=== PATIENT | female | born 1955 | race Two or more races ===

== ENCOUNTER 2024-01-21 22:45 | Emergency (ER) | payer BC, MEDICAID ==
[~2024-01-21] VITALS: Ht 160 cm; Wt 74.8 kg
[2024-01-21 22:47] VITALS: TEMP 98.3
[2024-01-21] MEDS ORDERED: IBUPROFEN 600 MG TABLET ONE (23:28)
[2024-01-21] MEDS: IBUPROFEN 600 MG TABLET PO ONE (23:34)
[2024-01-21 23:48] LABS: BASOPHILS % (AUTO) 0.5 % (0.0-2.0); EOSINOPHILS % (AUTO) 0.8 % (0.0-6.0); HEMATOCRIT 37 % (33-45); HEMOGLOBIN 12.6 g/dL (11.5-14.8); LYMPHOCYTES # (AUTO) 1.5 K/uL (0.8-4.8); LYMPHOCYTES % (AUTO) 32.2 % (20.0-44.0); MEAN CORPUSCULAR HEMOGLOBIN 30 PG (26.0-33.0); MEAN CORPUSCULAR HGB CONC 34 g/dl (31.0-36.0); MEAN CORPUSCULAR VOLUME 87 fL (82-100); MONOCYTES # (AUTO) 0.4 K/uL (0.1-1.30); MONOCYTES % (AUTO) 7.7 % (2.0-12.0); NEUTROPHILS # (AUTO) 2.7 K/uL (1.8-8.9); NEUTROPHILS % (AUTO) 58.8 % (43.0-81.0); PLATELET COUNT (AUTO) 164 K/uL (150-450); RED BLOOD CELL COUNT(AUTO) 4.25 MIL/uL (4.0-5.2); RED CELL DISTRIBUTION WIDTH 16.6 % (11.5-15.0); WHITE BLOOD COUNT (AUTO) 4.6 K/uL (4.3-11.0)
[2024-01-21 23:55] LABS: CALCIUM, SERUM 7.4 mg/dL (8.5-10.1); CARBON DIOXIDE 30 mmol/L (21-32); CHLORIDE 97 mmol/L (98-107); CREATININE 0.8 mg/dL (0.6-1.3); GLUCOSE 387 mg/dL (74-106); POTASSIUM 3.5 mmol/L (3.5-5.1); SODIUM SERUM 133 mmol/L (136-145); UREA NITROGEN, BLOOD 19 mg/dL (7-18)
[2024-01-22 00:01] LABS: INR 0.91 (0.91-1.10); PARTIAL THROMBOPLASTIN TIME 28.7 SEC (24.3-34.3); PROTHROMBIN TIME 9.7 SECS (9.2-11.1)
[2024-01-22 00:04] LABS: ALANINE AMINOTRANSFERASE 14 U/L (12-78); ALBUMIN 3.1 g/dL (3.4-5.0); ALKALINE PHOSPHATASE 274 U/L (46-116); ASPARTATE AMINOTRANSFERASE 21 U/L (15-37); BILIRUBIN,DIRECT 0.1 mg/dL (0.0-0.2); BILIRUBIN,TOTAL 0.3 mg/dL (0.2-1.0); TOTAL PROTEIN, SERUM 7.2 g/dL (6.4-8.2)
[2024-01-22] MEDS: IV NS 0.9% 1,000 ML BAG IV ONE (00:45)
[2024-01-22] MEDS ORDERED: IBUPROFEN 600 MG TABLET ONE (01:47)
[2024-01-22] MEDS ORDERED: IBUPROFEN 600 MG TABLET PO ONE (02:00)
[2024-01-22 06:14] VITALS: BP 151/89; O2SAT 99
== END 2024-01-22 06:14 | disposition home or self-care (01) ==
LOC: ER 22:48
DX: R07.89 Other chest pain (principal); E11.65 Type 2 diabetes mellitus with hyperglycemia; I10 Essential (primary) hypertension; R94.31 Abnormal electrocardiogram [ECG] [EKG]; M54.89 Other dorsalgia; R51.9 Headache, unspecified; E78.5 Hyperlipidemia, unspecified; Z88.2 Allergy status to sulfonamides; Z88.8 Allergy status to other drugs, medicaments and biological substances
CPT/HCPCS: 99285; 71045; 93005 ×2; 85025; 80048; 80076; 36415; 84484; 85730; 96360; J7030

== ENCOUNTER → 2024-04-11 | Emergency (ER) | payer MEDICARE, OTHER ==
[~2024-04-11] VITALS: Ht 157.5 cm; Wt 68.0 kg
[~2024-04-11] MED LIST: ASPIRIN 325 MG TABLET ONE; NITROGLYCERIN 0.4 MG/TAB BOTTLE ONE
[2024-04-11 21:34] VITALS: BP 162/80; TEMP 98.6; O2SAT 100
[2024-04-11] MEDS: ASPIRIN 325 MG TABLET PO ONE (21:56)
[2024-04-11] MEDS: NITROGLYCERIN 0.4 MG/TAB BOTTLE SL ONE (21:56)
== END | disposition left against medical advice (07) ==
LOC: ER 21:23
DX: R07.89 Other chest pain (principal); R06.02 Shortness of breath; E11.9 Type 2 diabetes mellitus without complications; E78.5 Hyperlipidemia, unspecified; Z88.2 Allergy status to sulfonamides; Z88.8 Allergy status to other drugs, medicaments and biological substances

== ENCOUNTER 2024-09-05 18:46 | Inpatient (IN) | payer MEDICARE, OTHER ==
[~2024-09-05] VITALS: Ht 149.9 cm; Wt 65.4 kg
[2024-09-05] MEDS ORDERED: MAG HYDROX/AL HYDROX/SIMETH 30 ML UDC ONE (19:30)
[2024-09-05] MEDS: FAMOTIDINE/PF INJ 20 MG/2 ML VIAL IV ONE (19:30)
[2024-09-05] MEDS: MAG HYDROX/AL HYDROX/SIMETH 30 ML UDC PO ONE (19:30)
[2024-09-05] MEDS ORDERED: FAMOTIDINE/PF INJ 20 MG/2 ML VIAL IV ONE (19:30)
[2024-09-05 19:37] LABS: BASOPHILS % (AUTO) 0.4 % (0.0-2.0); EOSINOPHILS % (AUTO) 0.7 % (0.0-6.0); HEMATOCRIT 40 % (33-45); HEMOGLOBIN 13.5 g/dL (11.5-14.8); LYMPHOCYTES # (AUTO) 1.4 K/uL (0.8-4.8); LYMPHOCYTES % (AUTO) 28.8 % (20.0-44.0); MEAN CORPUSCULAR HEMOGLOBIN 31 PG (26.0-33.0); MEAN CORPUSCULAR HGB CONC 34 g/dl (31.0-36.0); MEAN CORPUSCULAR VOLUME 91 fL (82-100); MONOCYTES # (AUTO) 0.5 K/uL (0.1-1.30); MONOCYTES % (AUTO) 9.6 % (2.0-12.0); NEUTROPHILS % (AUTO) 60.5 % (43.0-81.0); PLATELET COUNT (AUTO) 177 K/uL (150-450); RED BLOOD CELL COUNT(AUTO) 4.38 MIL/uL (4.0-5.2); RED CELL DISTRIBUTION WIDTH 14.5 % (11.5-15.0); WHITE BLOOD COUNT (AUTO) 4.9 K/uL (4.3-11.0)
[2024-09-05 20:00] LABS: ALBUMIN 3.2 g/dL (3.4-5.0); BILIRUBIN,TOTAL 0.3 mg/dL (0.2-1.0); CALCIUM, SERUM 8.8 mg/dL (8.5-10.1); POTASSIUM 3.6 mmol/L (3.5-5.1); TOTAL PROTEIN, SERUM 6.8 g/dL (6.4-8.2)
[2024-09-05] MEDS ORDERED: ASPIRIN EC 325 MG TABLET.DR PO ONE (20:21)
[2024-09-05] MEDS: ASPIRIN EC 325 MG TABLET.DR PO ONE (20:21)
[2024-09-05] MEDS ORDERED: Z GUARD REMEDY 4 OZ OINT TP PRN (20:30)
[2024-09-05] MEDS ORDERED: MAGNESIUM HYDROXIDE 30 ML UDC PO PRN (20:30)
[2024-09-05] MEDS: ENOXAPARIN SODIUM 40 MG/0.4 ML DISP.SYRIN SQ SCH (20:30)
[2024-09-05] MEDS ORDERED: NITROGLYCERIN 0.4 MG/TAB BOTTLE SL PRN (20:30)
[2024-09-05] MEDS ORDERED: DEXTROSE 50%-WATER 50 ML DISP.SYRIN IV PRN (20:30)
[2024-09-05] MEDS ORDERED: ENOXAPARIN SODIUM 40 MG/0.4 ML DISP.SYRIN SQ ONE (21:13)
[2024-09-05] MEDS: INSULIN REGULAR, HUMAN 100 UNIT/ML 3 ML VIAL SQ PRN (22:00)
[2024-09-05] MEDS: BLOOD SUGAR DIAGNOSTIC 1 EACH STRIP IN SCH (22:00)
[2024-09-05] MEDS ORDERED: INSULIN REGULAR, HUMAN 100 UNIT/ML 10 ML VIAL ONE (22:56)
[2024-09-06 05:51] LABS: BASOPHILS % (AUTO) 0.4 % (0.0-2.0); EOSINOPHILS % (AUTO) 0.7 % (0.0-6.0); HEMATOCRIT 39 % (33-45); HEMOGLOBIN 13.1 g/dL (11.5-14.8); LYMPHOCYTES # (AUTO) 1.4 K/uL (0.8-4.8); MEAN CORPUSCULAR HEMOGLOBIN 30 PG (26.0-33.0); MEAN CORPUSCULAR HGB CONC 34 g/dl (31.0-36.0); MEAN CORPUSCULAR VOLUME 89 fL (82-100); MONOCYTES # (AUTO) 0.4 K/uL (0.1-1.30); NEUTROPHILS # (AUTO) 2.2 K/uL (1.8-8.9); NEUTROPHILS % (AUTO) 54.9 % (43.0-81.0); PLATELET COUNT (AUTO) 160 K/uL (150-450); RED BLOOD CELL COUNT(AUTO) 4.38 MIL/uL (4.0-5.2); RED CELL DISTRIBUTION WIDTH 14.8 % (11.5-15.0); WHITE BLOOD COUNT (AUTO) 4.1 K/uL (4.3-11.0)
[2024-09-06 06:12] LABS: CALCIUM, SERUM 8.4 mg/dL (8.5-10.1); CREATININE 0.9 mg/dL (0.6-1.3); MAGNESIUM 2.1 mg/dL (1.8-2.4); PHOSPHORUS 3.7 mg/dL (2.5-4.9); POTASSIUM 3.4 mmol/L (3.5-5.1)
[2024-09-06] MEDS ORDERED: PANTOPRAZOLE 40 MG TABLET.DR PO ONE (07:39)
[2024-09-06] MEDS: PANTOPRAZOLE 40 MG TABLET.DR PO SCH (07:46)
[2024-09-06] MEDS ORDERED: ONDA-97 PO (11:06)
[2024-09-06] MEDS ORDERED: MELA5TAB PO (11:06)
[2024-09-06] MEDS ORDERED: INSU100I14 SQ (11:07)
[2024-09-06] MEDS ORDERED: LACT10SO58 PO (11:07)
[2024-09-06] MEDS ORDERED: MICO45CR46 VG (11:07)
[2024-09-06] MEDS ORDERED: CYCL10TA9 PO (11:07)
[2024-09-06] MEDS ORDERED: ATOR80TA PO (11:07)
[2024-09-06] MEDS ORDERED: RANO500T6 PO (11:07)
[2024-09-06] MEDS ORDERED: ALBU2.5V38 IH (11:07)
[2024-09-06] MEDS ORDERED: HYDR28.316 RC (11:07)
[2024-09-06] MEDS ORDERED: TRAM50TA2 PO (11:07)
[2024-09-06] MEDS ORDERED: SIME80TA15 PO (11:07)
[2024-09-06] MEDS ORDERED: ATEN100T PO (11:07)
[2024-09-06] MEDS ORDERED: POLY17PO4 PO (11:07)
[2024-09-06] MEDS ORDERED: OXYB5TAB16 PO (11:07)
[2024-09-06] MEDS ORDERED: SERT50TA12 PO (11:07)
[2024-09-06] MEDS ORDERED: MIRT-90 PO (11:07)
[2024-09-06] MEDS ORDERED: INSU100I30 SQ (11:07)
[2024-09-06] MEDS ORDERED: DAPA10TA PO (11:07)
[2024-09-06] MEDS ORDERED: AMLO10TA4 PO (11:07)
[2024-09-06] MEDS ORDERED: ALBU8.5H8 IH (11:07)
[2024-09-06] MEDS ORDERED: MAG30ORA PO (11:07)
[2024-09-06] MEDS ORDERED: SENN8.6T19 PO (11:07)
[2024-09-06] MEDS ORDERED: DULO60CA45 PO (11:07)
[2024-09-06] MEDS ORDERED: ACET-2030 PO (11:07)
[2024-09-06] MEDS ORDERED: TERB250T53 PO (11:07)
[2024-09-06] MEDS ORDERED: LOSA100T31 PO (11:07)
[2024-09-06] MEDS ORDERED: ASPI-1420 PO (11:07)
[2024-09-06] MEDS ORDERED: ARIP5TAB10 PO (11:07)
[2024-09-06] MEDS ORDERED: POTASSIUM CHLORIDE 20 MEQ TAB.PRT.SR PO ONE (12:10)
[2024-09-06] MEDS: POTASSIUM CHLORIDE 20 MEQ TAB.PRT.SR PO SCH (12:12)
[2024-09-06] MEDS ORDERED: INSULIN REGULAR, HUMAN 100 UNIT/ML 10 ML VIAL ONE (12:56)
[2024-09-06] MEDS ORDERED: CYCLOBENZAPRINE 10 MG TABLET PO PRN (15:00)
[2024-09-06] MEDS ORDERED: INSULIN REGULAR, HUMAN 100 UNIT/ML 3 ML VIAL SQ PRN (15:00)
[2024-09-06] MEDS ORDERED: POLYETHYLENE GLYCOL 3350 17 GM POWD.PACK PO PRN (15:00)
[2024-09-06] MEDS ORDERED: TRAMADOL HCL 50 MG TABLET PO PRN (15:00)
[2024-09-06] MEDS ORDERED: SENNOSIDES 8.6 MG TABLET PO PRN (15:00)
[2024-09-06] MEDS ORDERED: DEXTROSE 50%-WATER 50 ML DISP.SYRIN IV PRN (15:00)
[2024-09-06] MEDS ORDERED: ACETAMINOPHEN 325 MG TABLET ONE (15:22)
[2024-09-06] MEDS: ACETAMINOPHEN 325 MG TABLET PO PRN (15:24)
[2024-09-06] MEDS ORDERED: ACETAMINOPHEN ES 500 MG TABLET PO SCH (17:00)
[2024-09-06] MEDS ORDERED: OXYBUTYNIN CHLORIDE 5 MG TABLET PO SCH (17:00)
[2024-09-06] MEDS ORDERED: MIRTAZAPINE 15 MG TABLET PO SCH (18:00)
[2024-09-06] MEDS: BLOOD SUGAR DIAGNOSTIC 1 EACH STRIP IN SCH (18:06)
[2024-09-06 19:30] VITALS: BP 139/74; TEMP 98.1; O2SAT 96
[2024-09-06] MEDS ORDERED: ALBUTEROL FS 2.5 MG/0.5 ML VIAL.NEB NEB PRN (19:30)
[2024-09-06 20:00] VITALS: BP 139/74; TEMP 98.1; O2SAT 96
[2024-09-06] MEDS: RANOLAZINE 500 MG TAB.ER.12H PO SCH (21:00)
[2024-09-06] MEDS: MIRTAZAPINE 15 MG TABLET PO SCH (21:01)
[2024-09-06] MEDS: ACETAMINOPHEN ES 500 MG TABLET PO SCH (21:01)
[2024-09-06] MEDS: OXYBUTYNIN CHLORIDE 5 MG TABLET PO SCH (21:01)
[2024-09-06] MEDS ORDERED: Medication Not On Formulary EA (Melatonin 10 MG) PO SCH (22:00)
[2024-09-06] MEDS: AMLODIPINE BESYLATE 10 MG TABLET PO SCH (22:13)
[2024-09-06] MEDS: LACTULOSE 10 G/15 ML UDC (PYXIS) PO SCH (22:13)
[2024-09-07] VITALS: BP 150/82; TEMP 97.7; O2SAT 99
[2024-09-07] MEDS ORDERED: DEXTROSE 50%-WATER 50 ML DISP.SYRIN IV PRN (02:30)
[2024-09-07 04:00] VITALS: BP 143/90; TEMP 98; O2SAT 98
[2024-09-07 07:56] LABS: CALCIUM, SERUM 9.7 mg/dL (8.5-10.1); CREATININE 0.8 mg/dL (0.6-1.3); POTASSIUM 3.6 mmol/L (3.5-5.1)
[2024-09-07 08:00] VITALS: BP 114/74; TEMP 97.9; O2SAT 98
[2024-09-07] MEDS: BLOOD SUGAR DIAGNOSTIC 1 EACH STRIP VI SCH (08:11)
[2024-09-07] MEDS: INSULIN REGULAR, HUMAN 100 UNIT/ML 3 ML VIAL SQ PRN (08:39)
[2024-09-07] MEDS: DULOXETINE HCL 30 MG CAPSULE.DR PO SCH (09:45)
[2024-09-07] MEDS: SERTRALINE HCL 50 MG TABLET PO SCH (09:46)
[2024-09-07] MEDS: ASPIRIN EC 81 MG TABLET.DR PO SCH (09:46)
[2024-09-07] MEDS: ARIPIPRAZOLE 5 MG TABLET PO SCH (09:46)
[2024-09-07] MEDS: ATORVASTATIN 40 MG TABLET PO SCH (09:46)
[2024-09-07] MEDS: ATENOLOL 50 MG TABLET PO SCH (09:48)
[2024-09-07] MEDS: LOSARTAN POTASSIUM 50 MG TABLET PO SCH (09:49)
[2024-09-07] MEDS: TERBINAFINE HCL 250 MG TABLET PO SCH (10:27)
[2024-09-07] MEDS: DAPAGLIFLOZIN PROPANEDIOL 10 MG TABLET PO SCH (10:27)
[2024-09-07] MEDS: LIDOCAINE 5% (PATCH) 1 EA PATCH TP SCH (10:35)
[2024-09-07 12:00] VITALS: BP 139/50; TEMP 97.9; O2SAT 94
[2024-09-07] MEDS: NITROGLYCERIN 30 GM TUBE TP ONE (14:07)
[2024-09-07 16:00] VITALS: BP 131/67; TEMP 97.9; O2SAT 96
[2024-09-07] MEDS: MAG HYDROX/AL HYDROX/SIMETH 30 ML UDC PO PRN (16:29)
[2024-09-07 20:00] VITALS: BP 137/75; TEMP 97.5; O2SAT 98
[2024-09-07] MEDS: *INSULIN REGULAR(HUMULIN R)HUM 100 UNIT/ML VIAL SQ PRN (22:05)
[2024-09-08] VITALS: BP 95/68; TEMP 97.7; O2SAT 98
[2024-09-08 04:00] VITALS: BP 124/71; TEMP 97.5; O2SAT 98
[2024-09-08 08:00] VITALS: BP 120/75; TEMP 97.6; O2SAT 92
[2024-09-08 08:05] LABS: CHOLESTEROL 149 mg/dL (<200); HDL CHOLESTEROL 52 mg/dL (40-60); LDL 68 mg/dL (0-99); TRIGLYCERIDES 208 mg/dL (30-150)
[2024-09-08 12:00] VITALS: BP 143/70; TEMP 97.7; O2SAT 95
[2024-09-08] MEDS: FAMOTIDINE (20 MG) 20 MG TABLET PO SCH (14:52)
[2024-09-08 16:00] VITALS: BP 132/70; TEMP 97.5; O2SAT 96
[2024-09-08 20:00] VITALS: BP 136/64; TEMP 98.2; O2SAT 92
[2024-09-09] MEDS: Fenofibrate 48 MG TABLET PO SCH (08:30)
[2024-09-09 08:32] VITALS: BP 162/75
[2024-09-09 09:29] VITALS: TEMP 98.2
[2024-09-09] MEDS ORDERED: PANT40TA49 PO (09:48)
[2024-09-09] MEDS ORDERED: OXYB5TAB16 PO (09:48)
[2024-09-09] MEDS ORDERED: FAMO20TA80 PO (09:48)
[2024-09-09] MEDS ORDERED: FENO48TA PO (09:48)
[2024-09-09] MEDS ORDERED: LIDO30AD10 TP (09:48)
[2024-09-09] MEDS ORDERED: MIRT-121 PO (09:48)
== END 2024-09-09 12:40 | disposition home health service (06) | DRG 206 ==
LOC: ER 18:54 → TRANSITION 09-06 01:27 → TELE 09-06 18:44 → MED 09-08 13:50
PROVIDERS: ADMIT Nurse Practitioner Family; ATTEND Nurse Practitioner Acute Care
DX: M94.0 Chondrocostal junction syndrome [Tietze] (principal); E46 Unspecified protein-calorie malnutrition; E87.1 Hypo-osmolality and hyponatremia; E44.1 Mild protein-calorie malnutrition; E88.09 Other disorders of plasma-protein metabolism, not elsewhere classified; K21.9 Gastro-esophageal reflux disease without esophagitis; E66.9 Obesity, unspecified; E11.65 Type 2 diabetes mellitus with hyperglycemia; E11.40 Type 2 diabetes mellitus with diabetic neuropathy, unspecified; G89.29 Other chronic pain; I10 Essential (primary) hypertension; M54.9 Dorsalgia, unspecified; R26.81 Unsteadiness on feet; Z68.30 Body mass index [BMI] 30.0-30.9, adult; Z79.82 Long term (current) use of aspirin; Z79.4 Long term (current) use of insulin; Z79.899 Other long term (current) drug therapy; Z88.3 Allergy status to other anti-infective agents; Z88.2 Allergy status to sulfonamides; Z87.81 Personal history of (healed) traumatic fracture; E78.5 Hyperlipidemia, unspecified
CPT/HCPCS: 36415; 71045-TC; 74018; 80048-TC; 80061-TC; 80076-TC; 82962-TC; 83735-TC; 84100-TC; 84484-TC; 85025-TC; 93307-TC; 97116-TC; 97530-TC; G0378; J1650; J1815; J3490

== ENCOUNTER 2025-04-17 18:44 | Inpatient (IN) | payer MEDICARE, OTHER ==
[~2025-04-17] VITALS: Ht 149.9 cm; Wt 63.0 kg
[~2025-04-17 18:44] MED LIST changes: +ACET-2030 PO; +ALBU2.5V38 IH; +ALBU8.5H8 IH; +AMLO10TA4 PO; +ARIP5TAB10 PO; +ASPI-1420 PO; -ASPIRIN 325 MG TABLET ONE; +ATEN100T PO; +ATOR80TA PO; +CYCL10TA9 PO; +DAPA10TA PO; +DULO60CA45 PO; +FAMO20TA80 PO; +FENO48TA PO; +HYDR28.316 RC; +INSU100I14 SQ; +INSU100I30 SQ; +LACT10SO58 PO; +LIDO30AD10 TP; +LOSA100T31 PO; +MAG30ORA PO; +MELA5TAB PO; +MICO45CR46 VG; +MIRT-121 PO; +MIRT-90 PO; -NITROGLYCERIN 0.4 MG/TAB BOTTLE ONE; +ONDA-97 PO; +OXYB5TAB16 PO; +PANT40TA49 PO; +POLY17PO4 PO; +RANO500T6 PO; +SENN8.6T19 PO; +SERT50TA12 PO; +SIME80TA15 PO; +TERB250T53 PO; +TRAM50TA2 PO
[2025-04-17 19:20] LABS: PLATELET COUNT (AUTO) 196 K/uL (150-450); RED BLOOD CELL COUNT(AUTO) 4.52 MIL/uL (4.0-5.2); RED CELL DISTRIBUTION WIDTH 14.7 % (11.5-15.0); WHITE BLOOD COUNT (AUTO) 6.1 K/uL (4.3-11.0)
[2025-04-17] MEDS: IV NS 0.9% 1,000 ML BAG IV ONE (19:34)
[2025-04-17] MEDS ORDERED: INSULIN REGULAR, HUMAN 100 UNIT/ML 10 ML VIAL ONE (19:35)
[2025-04-17] MEDS: INSULIN REGULAR, HUMAN 100 UNIT/ML 10 ML VIAL SQ ONE (19:37)
[2025-04-17 19:42] LABS: CALCIUM, SERUM 8.9 mg/dL (8.5-10.1); CREATININE 1.0 mg/dL (0.6-1.3); NT-PRO BNP 77 pg/mL (0-125); SODIUM SERUM 135 mmol/L (136-145); UREA NITROGEN, BLOOD 17 mg/dL (7-18)
[2025-04-17 19:43] LABS: SITE, VBG VBG - N/A; VBG BASE EXCESS -0.1 mmol/L (-2.0-3.0); VBG HCO3 23.8 mmol/L (22.0-29.0); VBG MetHb 0.1 % (0.5-1.5); VBG OXYGEN SATURATION 87.0 % (60.0-85.0); VBG PCO2 36.6 mmHg (38.0-54.0); VBG PH 7.431 (7.320-7.430); VBG PO2 51.3 mmHg (23.0-48.0); VBG TOTAL HEMOGLOBIN 13.3 G/dL (12.0-16.0)
[2025-04-17] MEDS ORDERED: DEXTROSE 50%-WATER 50 ML DISP.SYRIN IV PRN (22:30)
[2025-04-17] MEDS ORDERED: Z GUARD REMEDY 4 OZ OINT TP PRN (22:30)
[2025-04-17] MEDS ORDERED: MAG HYDROX/AL HYDROX/SIMETH 30 ML UDC PO PRN (22:30)
[2025-04-17] MEDS ORDERED: MAGNESIUM HYDROXIDE 30 ML UDC PO PRN (22:30)
[2025-04-17] MEDS ORDERED: ONDANSETRON HCL/PF 4 MG/2 ML VIAL IVP PRN (22:30)
[2025-04-17] MEDS ORDERED: IOHEXOL-300 100 ML VIAL IV ONE (22:32)
[2025-04-17] MEDS ORDERED: CT SWABBABLE VALVE TRANS SET 1 EA INFUS.SET MC ONE (22:33)
[2025-04-17] MEDS ORDERED: IV NS 0.9% 250 ML IV ONE (22:33)
[2025-04-17] MEDS: ASPIRIN 325 MG TABLET PO ONE (22:41)
[2025-04-17] MEDS: POTASSIUM CHLORIDE 20 MEQ TAB.PRT.SR PO ONE (22:41)
[2025-04-18] VITALS (12 sets, daily range): BP systolic 113–181; BP diastolic 57–90; TEMP 97.5–97.9; O2SAT 95–100
[2025-04-18] MEDS: IV NS 0.9% 1,000 ML IV SCH
[2025-04-18] MEDS ORDERED: OXYMETAZOLINE HCL NASAL SPRAY 30 ML BOTTLE NS PRN (01:00)
[2025-04-18] MEDS: IBUPROFEN 600 MG TABLET PO PRN (01:07)
[2025-04-18] MEDS: ARIPIPRAZOLE 5 MG TABLET PO SCH ×2 (01:08→09:06)
[2025-04-18] MEDS: LOSARTAN POTASSIUM 50 MG TABLET PO SCH ×2 (01:08→09:06)
[2025-04-18] MEDS: AMLODIPINE BESYLATE 10 MG TABLET PO SCH (01:08)
[2025-04-18] MEDS: ENOXAPARIN SODIUM 40 MG/0.4 ML DISP.SYRIN SQ SCH (01:16)
[2025-04-18] MEDS: ZOLPIDEM TARTRATE 5 MG TABLET PO PRN (01:19)
[2025-04-18] MEDS: CARVEDILOL 12.5 MG TABLET PO SCH ×2 (01:31→16:14)
[2025-04-18] MEDS: ATORVASTATIN 40 MG TABLET PO SCH ×2 (01:31→09:09)
[2025-04-18] MEDS: INSULIN REGULAR, HUMAN 100 UNIT/ML 3 ML VIAL SQ PRN (06:31)
[2025-04-18] MEDS: PANTOPRAZOLE 40 MG TABLET.DR PO SCH (06:32)
[2025-04-18] MEDS: BLOOD SUGAR DIAGNOSTIC 1 EACH STRIP VI SCH (06:32)
[2025-04-18 07:44] LABS: PLATELET COUNT (AUTO) 204 K/uL (150-450); RED BLOOD CELL COUNT(AUTO) 4.92 MIL/uL (4.0-5.2); RED CELL DISTRIBUTION WIDTH 14.7 % (11.5-15.0); WHITE BLOOD COUNT (AUTO) 4.5 K/uL (4.3-11.0)
[2025-04-18 07:56] LABS: CALCIUM, SERUM 8.7 mg/dL (8.5-10.1); CREATININE 0.7 mg/dL (0.6-1.3); PHOSPHORUS 2.6 mg/dL (2.5-4.9); SODIUM SERUM 142.0 mmol/L (136-145); UREA NITROGEN, BLOOD 9.0 mg/dL (7-18)
[2025-04-18 07:58] LABS: LDL 36 mg/dL (0-99)
[2025-04-18] MEDS ORDERED: ALBUTEROL FS 2.5 MG/0.5 ML VIAL.NEB NEB PRN (08:30)
[2025-04-18] MEDS ORDERED: GABA300C PO (08:41)
[2025-04-18] MEDS ORDERED: IBUP-1957 PO (08:41)
[2025-04-18] MEDS ORDERED: ASPIRIN EC 81 MG TABLET.DR PO SCH (09:00)
[2025-04-18] MEDS ORDERED: RANOLAZINE 500 MG TAB.ER.12H PO SCH (09:00)
[2025-04-18] MEDS: ASPIRIN EC 81 MG TABLET.DR PO SCH (09:07)
[2025-04-18] MEDS: GABAPENTIN 300 MG CAPSULE PO SCH (09:08)
[2025-04-18] MEDS: OXYBUTYNIN CHLORIDE 5 MG TABLET PO SCH (09:08)
[2025-04-18] MEDS: SERTRALINE HCL 50 MG TABLET PO SCH (09:08)
[2025-04-18] MEDS: ATENOLOL 50 MG TABLET PO SCH (09:08)
[2025-04-18] MEDS: DULOXETINE HCL 30 MG CAPSULE.DR PO SCH (09:08)
[2025-04-18] MEDS: ISOSORBIDE MONONITRATE (30MG) 30 MG TAB.SR.24H PO SCH (09:08)
[2025-04-18] MEDS: RANOLAZINE 500 MG TAB.ER.12H PO SCH (09:09)
[2025-04-18] MEDS: METOCLOPRAMIDE HCL 10 MG/2 ML VIAL IV SCH (09:09)
[2025-04-18] MEDS: DAPAGLIFLOZIN PROPANEDIOL 10 MG TABLET PO SCH (09:23)
[2025-04-18] MEDS: INSULIN GLARGINE, 100 UNIT/ML CARTRIDGE SQ SCH (09:26)
[2025-04-18] MEDS: METOPROLOL TARTRATE 50 MG TABLET PO ONE (12:29)
[2025-04-18] MEDS: IPRATROPIUM NEB FS 0.5 MG/2.5 ML AMPUL.NEB NEB SCH (13:08)
[2025-04-18] MEDS: ALBUTEROL FS 2.5 MG/3 ML VIAL.NEB NEB SCH (13:09)
[2025-04-18] MEDS ORDERED: IOHEXOL-350 100 ML VIAL IV ONE (14:38)
[2025-04-18] MEDS ORDERED: IV NS 0.9% 250 ML IV ONE (14:38)
[2025-04-18] MEDS: NITROGLYCERIN 0.4 MG/TAB BOTTLE SL ONE (14:50)
[2025-04-18] MEDS: METOPROLOL TARTRATE INJ 5 MG/5 ML AMPUL IVP PRN (14:51)
[2025-04-18] MEDS: IV NS 0.9% 1,000 ML IV PRN (15:58)
[2025-04-18] MEDS: *INSULIN REGULAR(HUMULIN R)HUM 100 UNIT/ML VIAL SQ PRN (21:01)
[2025-04-18] MEDS: LACTULOSE 10 G/15 ML UDC (PYXIS) PO SCH (21:07)
[2025-04-18] MEDS ORDERED: AMLODIPINE BESYLATE 10 MG TABLET PO SCH (22:00)
[2025-04-19] VITALS (13 sets, daily range): BP systolic 99–155; BP diastolic 55–82; TEMP 97.5–98.2; O2SAT 95–100
[2025-04-19 07:00] LABS: CALCIUM, SERUM 8.8 mg/dL (8.5-10.1); CREATININE 0.6 mg/dL (0.6-1.3); SODIUM SERUM 143.0 mmol/L (136-145); UREA NITROGEN, BLOOD 12.0 mg/dL (7-18)
[2025-04-19] MEDS: PANTOPRAZOLE 40 MG TABLET.DR PO SCH (07:42)
[2025-04-19] MEDS: VALSARTAN 80 MG TABLET PO SCH (08:59)
[2025-04-19] MEDS: MORPHINE SULFATE INJ 4 MG/ML DISP.SYRIN IM PRN (11:05)
[2025-04-19] MEDS: ACETAMINOPHEN 325 MG TABLET PO PRN (22:29)
[2025-04-20] VITALS (7 sets, daily range): BP systolic 119–146; BP diastolic 57–71; TEMP 97.7–98.6; O2SAT 95–100
[2025-04-20 08:05] LABS: CALCIUM, SERUM 9.6 mg/dL (8.5-10.1); CREATININE 0.8 mg/dL (0.6-1.3); SODIUM SERUM 142.0 mmol/L (136-145); UREA NITROGEN, BLOOD 16.0 mg/dL (7-18)
[2025-04-21] VITALS (10 sets, daily range): BP systolic 125–156; BP diastolic 57–91; TEMP 97.5–98.2; O2SAT 95–100
[2025-04-21 07:04] LABS: CALCIUM, SERUM 9.2 mg/dL (8.5-10.1); CREATININE 0.9 mg/dL (0.6-1.3); SODIUM SERUM 142.0 mmol/L (136-145); UREA NITROGEN, BLOOD 14.0 mg/dL (7-18)
[2025-04-21] MEDS ORDERED: CARV12.52 PO (08:38)
[2025-04-21] MEDS: SENNOSIDES 8.6 MG TABLET PO PRN (17:56)
[2025-04-22] VITALS (7 sets, daily range): BP systolic 131–143; BP diastolic 56–71; TEMP 97.2–98.1; O2SAT 96–100
[2025-04-23 08:14] VITALS: BP 150/81; TEMP 98.1; O2SAT 95
[2025-04-23] MEDS: ENOXAPARIN SODIUM 40 MG/0.4 ML DISP.SYRIN SQ SCH (09:39)
[2025-04-23 14:40] VITALS: O2SAT 97
[2025-04-23 14:50] VITALS: O2SAT 100
[2025-04-23 16:40] VITALS: BP 114/60; TEMP 97.3
== END 2025-04-23 18:00 | disposition short-term general hospital (02) | DRG 303 ==
LOC: ER 18:50 → TELE 20:43 → MED 04-19 23:42 → TELE 04-21 16:40 → MED 04-22 03:10 → UNDODISIN 04-22 10:45
PROVIDERS: ADMIT Registered Nurse Psychiatric/Mental Health; ATTEND Internal Medicine
DX: I25.110 Atherosclerotic heart disease of native coronary artery with unstable angina pectoris (principal); I16.0 Hypertensive urgency; I10 Essential (primary) hypertension; E11.65 Type 2 diabetes mellitus with hyperglycemia; E78.5 Hyperlipidemia, unspecified; E11.40 Type 2 diabetes mellitus with diabetic neuropathy, unspecified; Z88.2 Allergy status to sulfonamides; Z79.82 Long term (current) use of aspirin; Z79.4 Long term (current) use of insulin; Z79.51 Long term (current) use of inhaled steroids; Z79.84 Long term (current) use of oral hypoglycemic drugs; Z79.899 Other long term (current) drug therapy; Z88.3 Allergy status to other anti-infective agents; Z91.148 Patient's other noncompliance with medication regimen for other reason; E87.6 Hypokalemia; R19.7 Diarrhea, unspecified; F32.A Depression, unspecified; G20.A1 Parkinson's disease without dyskinesia, without mention of fluctuations; Z98.890 Other specified postprocedural states
CPT/HCPCS: 36415; 71045-TC; 74178; 75574; 80048-TC; 80061-TC; 82010-TC; 82803-TC; 82962-TC; 83735-TC; 83880; 84100-TC; 84484-TC; 85025-TC; 85378-TC; 87045-TC; 93307-TC; 94760-TC; 94762-TC; 94799-TC; 97110-TC; 97116-TC; 97530-TC; A4223; G0378; J1650; J1815; J2270; J2765; J7030; J7050; Q9967